=== PATIENT | male | born 1955 | race Caucasian/White ===

== ENCOUNTER → 2019-07-25 | Outpatient (CLI) | payer OTHER ==
[~2019-07-25] VITALS: Ht 170.2 cm; Wt 99.8 kg
[~2019-07-25] MED LIST: FLEXERIL PO; HYDROCODON-ACE1 EAC7 PO; LIPITOR40 MG; METFORMIN; METFORMIN HCL500 M3 PO; PRINIVIL10 MG PO; SULINDAC 150 M150 MG PO; VIAGRA25 MG PO; ZETIA10 MG PO; [UNRECOGNIZED DRUG - OTHER] PO
[2019-07-25 13:15] VITALS: BP 114/76
--- NOTE | 2019-07-25 13:30 | NUR ---
Pain Clinic Assessment: 1. History of Osteoarthritis: Not Applicable History of Rheumatoid Arthritis: Not Applicable 2. Height: 5 ft. 7 in. 170.2 cm. Weight: 220.0 lb. oz. 99.792 kg. Patient's BMI: 34.4 3. Vital Signs: BP: 114/76 Pulse: 91 Resp: 16 Temp: 02 Sat: 97 ECG Mon: 4. Pain Intensity: 9 5. Fall Risk: Dizziness: N Needs help standing or walking: N Fallen in the last 3 months: N Fall risk comments: 6. Patient on Blood Thinner: None 7. History of Hypertension: Y 8. Opioid Therapy greater than 6 weeks: N Opiate Contract Signed: 9. Risk Assessment Tool Provided: low-0 10. Functional Assessment Tool: 11. Recreational Drug Use: Never Drug Type: Tobacco Use: Never Smoker Tobacco Type: Amount or Packs/day: How Many Years: Alcohol Use: Yes Frequency: Special Occasions Quant:
--- NOTE | 2019-08-21 21:49 | HPC ---
[facility] [address] [address] PAIN MANAGEMENT CONSULTATION Name: SHANNANSHERWINJOSSE ONOFRE Room #: REG PRISCILLA JamesonJose Guadalupe#: [id number] Admission: 07/25/19 Attend Phys: Giuseppe Diaz MD Discharge: Date of : 57 Report #: [id number] THIS REPORT FOR: //name// CC: Giuseppe Osborn DATE OF SERVICE: 07/25/2019 CHIEF COMPLAINT: Pain that started in 2018 and goes down into the left leg. HISTORY: The patient is a 64-year-old gentleman who has been experiencing pain and discomfort starting in June 2019. He describes it as a stabbing discomfort. The pain radiates down to his left thigh and into his left knee. Finds that the pain can be aggravating. Has noticed some leg numbness and paresthesias. Denies any bowel or bladder discomfort. He has tried nonsteroidal anti-inflammatory medications. Muscle relaxants have been tried. He has also tried physical therapy. Continues to have pain, which is problematic. States that he works for [employer]. 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 It is uneven. He has made a step, which caused increased back pain. He has undergone physical therapy. Does have a pituitary tumor and is being seen by the computer applications engineer. Does note some heaviness in his left leg when he is lifting it. He had an MRI, which showed some narrowing and some spinal stenosis. ALLERGIES: No known drug allergies. CURRENT MEDICATIONS: Lipitor 1 tablet 80 mg, Flexeril 10 mg t.i.d., Zetia 10 mg, lisinopril 10 mg, metformin 500 mg total 2 tablets daily, sulindac 150 mg 2 tablets daily, Viagra 100 mg p.r.n., hydrocodone 5/325 p.r.n., and multivitamin. PAST MEDICAL HISTORY: 1. Pituitary adenoma, hypogonadotropic hypogonadism. 2. Type 2 diabetes without complications, without long-term use of insulin. 3. Lumbar back pain with radicular pain. 4. Degenerative disk disease of the lumbar spine. 5. Spinal stenosis of lumbar region with neurogenic claudication. PAST SURGICAL HISTORY: Tonsillectomy. SOCIAL HISTORY: He is a certified welder and roving inspector. He has not worked since 06/28/2017. Applied for disability. REVIEW OF SYSTEMS: Fatigue, weakness, headaches, wears glasses, ringing in the ears, mouth sores, depression, diabetes, excessive thirst and urination. LABORATORY DATA: MRI of the lumbar spine dated 06/29/[address] [address] PAIN MANAGEMENT CONSULTATION Name: SHERWIN CAMPBELL Room #: REG [facility]#: [id number] Admission: 07/25/19 Attend Phys: Giuseppe Diaz MD Discharge: Date of : 57 Report #: [id number] alignment. Vertebral heights are maintained. There is normal marrow signal. The conus position is at L1. There is degenerative disk disease and desiccation at L3-L4. There is posterior annular fissure noted at L3-L4. Broad-based disk bulge at L3-L4 along with facet hypertrophy and ligamentum flavum producing mild central stenosis and moderate right neural foraminal narrowing. Mild lumbar spondylosis. Small circumferential disk bulge, ligamentum flavum thickening and facet hypertrophy resulting in central canal stenosis and moderate right neural foraminal stenosis at L3-L4 and right neural foraminal stenosis at L4-L5. No evidence of ligamentous injury. Small bilateral renal cysts. PAIN CLINIC ASSESSMENT AND PQRS: 1. History of osteoarthritis. The patient is not being treated for osteoarthritis or rheumatoid arthritis. 2. Height 5 feet 7 inches, weight 220 pounds, BMI 34.4. 3. Vital signs: Blood pressure 114/76, pulse 91, respiratory rate 16, room air saturation 97%. 4. Pain intensity 9/10. 5. Fall history: The patient has not fallen in the last 3 months. 6. Blood thinner. The patient is not on a blood thinning medication. 7. Hypertension. The patient is being treated for hypertension. 8. Opioids greater than 6 weeks. The patient received medication from one source, his primary. 9. Risk assessment tool, low for opioid use. 10. Functional assessment tool, 51/70. 11. Recreational drug use: The patient denies. 12. Tobacco: The patient has never smoked. 13. Alcohol. The patient occasionally drinks alcoholic beverages. PHYSICAL EXAMINATION: GENERAL: The patient is a well-developed, well-nourished white male. Appears his stated age. He is alert and oriented x 3. His affect is appropriate. Speech is fluent. HEENT: Normocephalic, atraumatic. Extraocular eye muscles intact. Sclerae nonicteric. Mucous membranes are moist. NECK: Without adenopathy or JVD. HEART: Regular rate. ABDOMEN: Nontender. EXTREMITIES: Upper extremity muscles 5/5 for the major muscle groups in the upper extremity. Deep tendon reflexes are +1 at the biceps bilaterally. The patient has pain and discomfort in lower portion of his back with pain that is radiating down in the L5-S1 dermatomal distribution on the left with pain in the posterior portion of his leg with sensory changes, weakness and a positive straight leg raise. [address] [address] PAIN MANAGEMENT CONSULTATION Name: SHERWIN CAMPBELL Room #: REG [facility]#: [id number] Admission: 07/25/19 Attend Phys: Giuseppe Diaz MD Discharge: Date of : 57 Report #: [id number] IMPRESSION: 1. Lumbar radiculopathy with L5-S1 area with sensory changes. 2. Pituitary adenoma, hypogonadotropic hypogonadism. 3. Type 2 diabetes without complications, without long-term use of insulin. 4. Lumbar back pain with radicular pain. 5. Degenerative disk disease of the lumbar spine. 6. Spinal stenosis of lumbar region with neurogenic claudication. RECOMMENDATIONS: We discussed treatment options with the patient. They include infection, worsening of pain, no improvement in pain, spinal headache and the patient elects to proceed with the injection. The patient's hip anatomy was discussed. A model was used to indicate the area of probable pathology. Questions were sought and answered. The patient elects to proceed with an epidural injection. PROCEDURE NOTE: The patient was taken to the procedure area. He was then assisted in getting on examination table. His back was sterilely prepped with Betadine. A 0.25% bupivacaine was infiltrated at the L5-S1 area using a midline approach. A left paramedian approach using a 17-gauge Tuohy through the midline approach was undertaken. There was no CSF, heme, or paresthesia. This area had been anesthetized using 0.25% bupivacaine. The patient tolerated the procedure well. There were no complications. He remained in the pain clinic for an appropriate amount of time. The patient's pain was 7-8 at the time of discharge. He will follow up in the future as needed. Total of 9 seconds fluoroscopy time was used. We would like to thank you for letting us participate in his care. We hope he continues to improve. <ELECTRONICALLY SIGNED> By: Giuseppe Diaz MD 08/21/19 2149 [id number] Giuseppe Diaz MD /nt
== END | disposition home or self-care (01) ==
LOC: PAIN 06:58
DX: M54.16 Radiculopathy, lumbar region (principal); I10 Essential (primary) hypertension; D64.9 Anemia, unspecified; E11.9 Type 2 diabetes mellitus without complications; Z79.899 Other long term (current) drug therapy

== ENCOUNTER → 2019-08-24 | Outpatient (CLI) | payer OTHER ==
[~2019-08-24] VITALS: Ht 170.2 cm; Wt 105.5 kg
[~2019-08-24] MED LIST changes: +NEURONTIN300 MG PO; +TRAMADOL 50 MG50 MG PO
[2019-08-24 10:30] VITALS: BP 104/70
--- NOTE | 2019-08-24 10:45 | NUR ---
Pain Clinic Assessment: 1. History of Osteoarthritis: Not Applicable History of Rheumatoid Arthritis: Not Applicable 2. Height: 5 ft. 7 in. 170.2 cm. Weight: 232.6 lb. oz. 105.507 kg. Patient's BMI: 36.4 3. Vital Signs: BP: 104/70 Pulse: 63 Resp: 14 Temp: 02 Sat: 97 ECG Mon: 4. Pain Intensity: 7-8 today 5. Fall Risk: Dizziness: N Needs help standing or walking: N Fallen in the last 3 months: N Fall risk comments: 6. Patient on Blood Thinner: None 7. History of Hypertension: Y 8. Opioid Therapy greater than 6 weeks: N Opiate Contract Signed: 9. Risk Assessment Tool Provided: low-0 10. Functional Assessment Tool: 11. Recreational Drug Use: Never Drug Type: Tobacco Use: Never Smoker Tobacco Type: Amount or Packs/day: How Many Years: Alcohol Use: Yes Frequency: Quant:
--- NOTE | 2019-09-11 14:24 | HPC ---
[facility] [place] [address] PAIN MANAGEMENT CONSULTATION Name: SHANNANSHERWIN ONOFRE Room #: REG PRISCILLA JamesonJose Guadalupe#: [id number] Admission: 08/24/19 Attend Phys: Giuseppe Diaz MD Discharge: Date of : 57 Report #: [id number] THIS REPORT FOR: //name// CC: Giuseppe Osborn DATE OF SERVICE: 08/24/2019 CHIEF COMPLAINT: Pain down in the left leg continues. HISTORY: The patient is a 64-year-old gentleman who has been seen in the pain clinic because of lumbar radiculopathy. He returns today, continuing to have pain in the lower portion of his back, which radiates down the left buttocks. He also has some discomfort in the left testicular area. He did have a pituitary tumor removed. He has returned today for evaluation. He continues to have constant, burning, aching, throbbing, sharp, pounding pain. He rates his pain as a 7-8/10. He notes that activities such as exercise can exacerbate his discomfort. ALLERGIES: No known drug allergies. CURRENT MEDICATIONS: Lipitor 80 mg, Flexeril 10 mg t.i.d., Zetia 10 mg, lisinopril 10 mg, metformin 500 mg, total of 2 tablets daily, sulindac 150 mg 2 tablets daily, Viagra 100 mg p.r.n., hydrocodone 5/325 and multivitamins. PAIN CLINIC ASSESSMENT AND PQRS: 1. The patient is not being treated for osteoarthritis or rheumatoid arthritis. 2. Height 5 feet 7 inches, weight 232 pounds, BMI is 36.4. 3. Vital Signs: Blood pressure 120/78, pulse 92, respiratory rate 18, room air saturation 97%. 4. Pain intensity 7-8/10. 5. Fall history: The patient has not fallen in the last 3 months. 6. Blood thinner. The patient is not on a blood thinning medication. 7. Hypertension. The patient is being treated for hypertension. 8. Opioids greater than 6 weeks. The patient denies other than get medication from his primary. 9. Risk assessment tool, low for opioid use. 10. Functional assessment tool /. 11. Recreational drug use: The patient denies. 12. Tobacco: The patient denies. 13. Alcohol: Occasional. PHYSICAL EXAMINATION: GENERAL: The patient is a well-developed, well-nourished white male. Appears his stated age. He is alert and oriented x 3. His affect is appropriate. [place] [address] PAIN MANAGEMENT CONSULTATION Name: SHERWIN CAMPBELL Room #: REG [facility]#: [id number] Admission: 08/24/19 Attend Phys: Giuseppe Diaz MD Discharge: Date of : 57 Report #: [id number] HEENT: Normocephalic, atraumatic. Extraocular eye muscles intact. Sclerae nonicteric. Mucous membranes are moist. NECK: Without adenopathy or JVD. HEART: Regular rate. ABDOMEN: Protuberant, nontender. EXTREMITIES: Upper extremity muscle strength judged to be 5/5 for the major muscle groups in the upper extremity. The patient has some pain and discomfort in the lower portion of his back with pain that radiates down the L5-S1 dermatomal distribution on the left. He has some sensory changes with weakness. Positive straight leg raise. IMPRESSION: 1. Lumbar radiculopathy with L5-S1 dermatomal distribution with sensory changes. 2. Pituitary adenoma. 3. Hypogonadotropic hypogonadism. 4. Diabetes without complications without long-term use of insulin. 5. Lumbar back pain with radiculopathy. 6. Degenerative joint disease of lumbar spine. 7. Spinal stenosis of lumbar spine with neurogenic claudication. RECOMMENDATIONS: We discussed treatment options with the patient. At this juncture, he has recently undergone surgery. Things are going reasonably well. He has continued to do well. He is scheduled in the very near future to follow up with his surgeons. He has not followed up with them since the surgery. We explained to him that it would be reasonable to get the okay from his surgeons that things have healed up well and he is not having problems prior to another injection. He will return to the Pain Clinic, at which time we would then proceed with another epidural steroid injection to help quell and decrease the pain and discomfort that he is having. We would like to thank you for letting us participate in his care. We hope he continues to improve. <ELECTRONICALLY SIGNED> By: Giuseppe Diaz MD 09/11/19 1424 [id number] [id number] Giuseppe Diaz MD /shea
== END ==
LOC: PAIN 07:32
DX: M47.26 Other spondylosis with radiculopathy, lumbar region (principal); E23.0 Hypopituitarism; E11.9 Type 2 diabetes mellitus without complications; M54.5 Low back pain; M48.061 Spinal stenosis, lumbar region without neurogenic claudication

== ENCOUNTER → 2019-08-31 | Outpatient (CLI) | payer OTHER ==
[~2019-08-31] VITALS: Ht 170.2 cm; Wt 105.1 kg
[2019-08-31 10:01] VITALS: BP 117/67
--- NOTE | 2019-08-31 10:07 | NUR ---
Pain Clinic Assessment: 1. History of Osteoarthritis: Not Applicable History of Rheumatoid Arthritis: Not Applicable 2. Height: 5 ft. 7 in. 170.2 cm. Weight: 231.8 lb. oz. 105.144 kg. Patient's BMI: 36.3 3. Vital Signs: BP: 117/67 Pulse: 66 Resp: 14 Temp: 02 Sat: 98 ECG Mon: 4. Pain Intensity: 7 TODAY 5. Fall Risk: Dizziness: N Needs help standing or walking: N Fallen in the last 3 months: N Fall risk comments: 6. Patient on Blood Thinner: None 7. History of Hypertension: Y 8. Opioid Therapy greater than 6 weeks: N Opiate Contract Signed: 9. Risk Assessment Tool Provided: low-0 10. Functional Assessment Tool: 11. Recreational Drug Use: Never Drug Type: Tobacco Use: Never Smoker Tobacco Type: Amount or Packs/day: How Many Years: Alcohol Use: Yes Frequency: Quant:
--- NOTE | 2019-09-11 14:24 | HPC ---
[facility] [place] [address] [place] [address] PAIN MANAGEMENT CONSULTATION Name: SHANNANSHERWIN KINGSTON Room #: REG PRISCILLA Gisell.#: [id number] Admission: 08/31/19 Attend Phys: Giuseppe Diaz MD Discharge: Date of : 57 Report #: [id number] THIS REPORT FOR: //name// CC: Giuseppe Osborn DATE OF SERVICE: 08/31/2019 HISTORY: The patient is a 64-year-old gentleman who has been seen in the pain clinic because of pain and discomfort in his low back area. He has undergone epidural steroid injections and found them helpful. He is now having pain and discomfort in the mid portion of his back. He would like to proceed with another epidural steroid injection. He has also tried physical therapy. As you may recall, he works for the [employer]. He has had a pituitary tumor removed. He has been seen by his surgeon and the ENT doctor. He feels that at this juncture it is reasonable for him to proceed with an epidural steroid injection. ALLERGIES: No known drug allergies. CURRENT MEDICATIONS: Lipitor 80 mg daily, Flexeril 10 mg t.i.d., Zetia 10 mg, lisinopril 10 mg, metformin 500 mg 2 tablets daily, sulindac 150 mg 2 tablets, Viagra 100 mg p.r.n., hydrocodone 5/325 and multivitamins. PAIN CLINIC ASSESSMENT AND PQRS: 1. History of osteoarthritis. The patient is not being treated for osteoarthritis. He is not being treated for rheumatoid arthritis. 2. Height 5 feet 7 inches, weight 231 pounds, BMI is 36.3. 3. Vital Signs: Blood pressure was 117/67, pulse 66, respiratory rate 14, room air saturation 98%. 4. Pain intensity 03/21. 5. Fall history: The patient has not fallen in the last 3 months. 6. Blood thinner. The patient is not on a blood thinning medication. 7. Hypertension. The patient is being treated for hypertension. 8. Opioids greater than 6 weeks. The patient receives medications from his primary physician. 9. Risk assessment tool, low for opioid use. 10. Functional assessment tool 51/70. 11. Recreational drugs: The patient denies. 12. Tobacco: The patient has never smoked. 13. Alcohol: The patient denies frequent use of alcoholic beverages. PHYSICAL EXAMINATION: GENERAL: The patient is a well-developed, well-nourished, somewhat obese white male. He appears his stated age. He is alert and oriented x 3. His affect is appropriate. Speech is fluent. HEENT: Normocephalic, atraumatic. Extraocular eye muscles intact. There are [address] [address] PAIN MANAGEMENT CONSULTATION Name: SHERWIN CAMPBELL Room #: REG PRISCILLA Figueroa#: [id number] Admission: 08/31/19 Attend Phys: Giuseppe Diaz MD Discharge: Date of : 57 Report #: [id number] no signs of infection in the patient's frontal sinus area. He denies any complaints in the maxillary areas. NECK: Without adenopathy or JVD. HEART: Regular rate. ABDOMEN: Nontender, protuberant. EXTREMITIES: Upper extremity muscle strength judged to be 5/5 for the major muscle groups in the upper extremity. Lower extremity muscle strength, the patient does have some pain and discomfort in the lower portion of his back. Pain at this juncture is radiating down into the back area groin area on the left. He noticed some improvement in the L5-S1 area, which had been injected in the past. IMPRESSION: 1. Lumbar radiculopathy with pain in the left groin area. Pain has improved in the L5-S1 area. 2. Pituitary adenoma/hypogonadotropic hypogonadism. 3. Type 2 diabetes without complications, without long-term use of insulin. 4. Lumbar back pain with radicular pain in the groin area. 5. Degenerative disk disease of the lumbar spine. 6. Spinal stenosis of lumbar spine with neurogenic claudication. RECOMMENDATIONS: We discussed treatment options with the patient. At this juncture, he feels that the pain is more problematic in the groin area. We explained to him that injections in the groin area could be secondary to hip pain, or hip pathology or trochanteric bursitis, but the patient feels that this pain is more involving the groin and anterior thigh area. We will proceed with an epidural steroid injection in the L1-L2 area. Risks and benefits of the injections were discussed. They could include but are not limited to infection, worsening pain, no improvement in pain, nerve damage, spinal headache and the patient elects to proceed. PROCEDURE NOTE: The patient was taken to the procedure area. He was then assisted in getting on examination table. His back was sterilely prepped with a Betadine solution. A 0.25% bupivacaine was infiltrated at the L1 - T12 interspace. This area had been infiltrated with 0.25% bupivacaine. A total of 80 mg Depo-Medrol, 40 mg triamcinolone and 2 mL of 0.25% bupivacaine was injected. The patient tolerated the procedure well. There were no complications. He remained in the pain clinic for an appropriate amount of time. He will follow up in the future as needed. He will monitor his blood sugars. [facility] [address] [place] [address] PAIN MANAGEMENT CONSULTATION Name: SHERWIN CAMPBELL Room #: REG PRISCILLA Jameson.#: [id number] Admission: 08/31/19 Attend Phys: Giuseppe Diaz MD Discharge: Date of : 57 Report #: [id number] We would like to thank you for letting us participate in his care. We hope he continues to improve. <ELECTRONICALLY SIGNED> By: Giuseppe Diaz MD 09/11/19 1424 0221 1313 Giuseppe Diaz MD /nt
== END | disposition home or self-care (01) ==
LOC: PAIN 06:41
DX: M51.16 Intervertebral disc disorders with radiculopathy, lumbar region (principal); M48.062 Spinal stenosis, lumbar region with neurogenic claudication; G89.29 Other chronic pain; E11.9 Type 2 diabetes mellitus without complications; D35.2 Benign neoplasm of pituitary gland; I10 Essential (primary) hypertension; Z98.890 Other specified postprocedural states; Z79.899 Other long term (current) drug therapy; Z79.891 Long term (current) use of opiate analgesic

== ENCOUNTER → 2019-10-05 | Outpatient (CLI) | payer OTHER ==
[~2019-10-05] VITALS: Ht 170.2 cm; Wt 110.9 kg
[~2019-10-05] MED LIST changes: +LEVO-T25 MCG PO; +PREDNISONE 5 MG5 MG PO
[2019-10-05 10:48] VITALS: BP 110/72
--- NOTE | 2019-10-05 11:13 | NUR ---
Pain Clinic Assessment: 1. History of Osteoarthritis: BACK History of Rheumatoid Arthritis: Not Applicable 2. Height: 5 ft. 7 in. 170.2 cm. Weight: 244.4 lb. oz. 110.859 kg. Patient's BMI: 38.3 3. Vital Signs: BP: 110/72 Pulse: 80 Resp: 16 Temp: 02 Sat: 97 ECG Mon: 4. Pain Intensity: 6 5. Fall Risk: Dizziness: N Needs help standing or walking: N Fallen in the last 3 months: N Fall risk comments: 6. Patient on Blood Thinner: None 7. History of Hypertension: Y 8. Opioid Therapy greater than 6 weeks: N Opiate Contract Signed: 9. Risk Assessment Tool Provided: low-0 10. Functional Assessment Tool: 11. Recreational Drug Use: Never Drug Type: Tobacco Use: Never Smoker Tobacco Type: Amount or Packs/day: How Many Years: Alcohol Use: Yes Frequency: Monthly Quant: 1
--- NOTE | 2019-10-10 08:34 | HPC ---
[facility] [place] [address] PAIN MANAGEMENT CONSULTATION Name: SHANNAN,SHERWINJOSSE ONOFRE Room #: REG PRISCILLA Henry#: [id number] Admission: 10/05/19 Attend Phys: Giuseppe Diaz MD Discharge: Date of : 57 Report #: [id number] THIS REPORT FOR: //name// CC: Giuseppe Osborn DATE OF SERVICE: 10/05/2019 CHIEF COMPLAINT: Pain in the low back area. HISTORY: The patient is a 64-year-old gentleman who has been seen in the Pain Clinic. As you may recall, he has had some pain and discomfort in lower portion of his back. He initially had pain that was problematic and radiating down into the lower portion of his back. He underwent an epidural steroid injection because of the pain in the L5-S1 area. He noted an improvement after the first injection. He had a second component of pain, which was located in the left leg with some pain radiating down into the groin area. A second epidural steroid injection was performed and the patient noted improvement in that low back area as well as in the groin area. That pain has improved. He now returns with a third pain. This was in the low back area near the gluteus key and primarily on the left side. If he pushes on this area, he notes exacerbation of the pain and discomfort. He has returned today for another evaluation and treatment. ALLERGIES: No known drug allergies. CURRENT MEDICATIONS: Lipitor 80 mg, Flexeril 10 mg 1 p.o. t.i.d., Zetia 10 mg, lisinopril 10 mg, metformin 500 mg 2 tablets daily, sulindac 150 mg 2 tablets, Viagra 100 mg p.r.n., hydrocodone 5/325, and multivitamins. PAIN CLINIC ASSESSMENT/PQRS: 1. The patient has some pain and discomfort in the lower back area. He is not being treated for rheumatoid arthritis. 2. Height 5 feet 7 inches, weight 244 pounds, BMI is 38.3. 3. Vital signs: Blood pressure 110/72, heart rate 80, respiratory rate 16, room air saturation 97%. 4. Pain intensity, 02/19. 5. Fall history: The patient has not fallen since we saw him last. 6. Blood thinner. The patient is not on a blood thinning medication. 7. Hypertension. The patient is being treated for hypertension. 8. Opioids greater than 6 weeks. The patient received medication from one source. 9. Risk assessment tool, low for opioid use. 10. Functional assessment tool, 51/70. 11. Recreational drug use: The patient denies. 12. Tobacco: The patient never smoked. [facility] [address] [place] [address] PAIN MANAGEMENT CONSULTATION Name: SHERWIN CAMPBELL Room #: REG [facility] Henry#: [id number] Admission: 10/05/19 Attend Phys: Giuseppe Diaz MD Discharge: Date of : 57 Report #: [id number] 13. Alcohol. The patient denies other than rare use of alcoholic beverages. PHYSICAL EXAMINATION: GENERAL: The patient is a well-developed, well-nourished white male. Appears his stated age. He is alert and oriented x 3. His affect is appropriate. Speech is fluent. HEENT: Normocephalic, atraumatic. Extraocular eye muscles intact. Sclerae nonicteric. Mucous membranes are moist. NECK: Without adenopathy or JVD. HEART: Regular rate. ABDOMEN: Nontender, protuberant. EXTREMITIES: Upper extremity muscle strength judged to be 5/5 for the major muscle groups in the upper extremity. Lower extremity muscle strength generally 5/5 for the major muscle groups in the lower extremity. The patient has pain and discomfort in the left posterior superior iliac spine area with palpation. The patient is experiencing pain and discomfort with lumbar extension, left and right lateral bending. It is primarily in the left buttocks and low back area. IMPRESSION: 1. Myofascial pain, left buttocks area. 2. History of lumbar radiculopathy in the left groin improved after an epidural steroid injection. 3. Pituitary adenoma/hypogonadotropic hypogonadism. 4. Type 2 diabetes without complications, without use of insulin. 5. Lumbar radicular pain in the groin area, improved after the last injection. 6. Degenerative joint disease of lumbar spine. 7. Spinal stenosis of lumbar spine with neurogenic claudication. RECOMMENDATIONS: We discussed treatment options with the patient. He underwent an injection in the epidural space for the pain in the left groin area that is improved. He had pain, which is radiating in the L5-S1 dermatomal distribution. After the injection for this, pain improved. The patient is now with left foot pain and the left low back area. Palpation in the left groin and in the left posterior superior iliac spine area does cause the patient to complain and verbalized that this indeed is the nidus of his pain. We discussed treatment options with the patient. We will proceed with a trigger point injection. Risks and benefits of the procedure, which could include infection, no pain relief, worsening of pain, nerve damage, bleeding were discussed and the patient elects to proceed. PROCEDURE NOTE: The patient was taken to the procedure area. He was then assisted in getting on examination table. The patient sat perpendicular to the table. His back was sterilely prepped with a chlorhexidine solution and allowed to dry. Palpation in the area of the posterior superior iliac spine near the gluteus key and the latissimus dorsi was palpated. The patient states that this trigger point did reproduce his pain. A 25-gauge needle was then advanced [address] [address] PAIN MANAGEMENT CONSULTATION Name: SHERWIN CAMPBELL Room #: REG PRISCILLA Henry#: [id number] Admission: 10/05/19 Attend Phys: Giuseppe Diaz MD Discharge: Date of : 57 Report #: [id number] into the area of the discomfort. Aspiration was negative. The patient did not note any paresthesia. A total of 9 mL of 0.5% bupivacaine and 80 mg Depo-Medrol were injected into this area. The patient tolerated the procedure well. He remained in the Pain Clinic for an appropriate amount of time. He will follow up in the future as needed. Possibility of another epidural steroid injection in the future is an option. We would like to thank you for letting us participate in his care. We hope he continues to improve. <ELECTRONICALLY SIGNED> By: Giuseppe Diaz MD 10/10/19 0834 [id number] Giuseppe Diaz MD /nt
== END | disposition home or self-care (01) ==
LOC: PAIN 06:40
DX: M79.18 Myalgia, other site (principal); M51.16 Intervertebral disc disorders with radiculopathy, lumbar region; I10 Essential (primary) hypertension; E11.9 Type 2 diabetes mellitus without complications; M48.062 Spinal stenosis, lumbar region with neurogenic claudication; Z98.890 Other specified postprocedural states; Z79.899 Other long term (current) drug therapy; Z79.891 Long term (current) use of opiate analgesic

== ENCOUNTER → 2020-05-30 | Outpatient (CLI) | payer OTHER ==
[~2020-05-30] VITALS: Ht 170.2 cm; Wt 121.4 kg
[2020-05-30 12:20] VITALS: BP 122/71
--- NOTE | 2020-05-30 12:24 | NUR ---
Pain Clinic Assessment: 1. History of Osteoarthritis: BACK History of Rheumatoid Arthritis: Not Applicable 2. Height: 5 ft. 7 in. 170.2 cm. Weight: 267.6 lb. oz. 121.383 kg. Patient's BMI: 41.9 3. Vital Signs: BP: 122/71 Pulse: 70 Resp: 18 Temp: 02 Sat: 97 ECG Mon: 4. Pain Intensity: 7 5. Fall Risk: Dizziness: N Needs help standing or walking: N Fallen in the last 3 months: N Fall risk comments: 6. Patient on Blood Thinner: None 7. History of Hypertension: Y 8. Opioid Therapy greater than 6 weeks: N Opiate Contract Signed: 9. Risk Assessment Tool Provided: low-0 10. Functional Assessment Tool: 11. Recreational Drug Use: Never Drug Type: Tobacco Use: Never Smoker Tobacco Type: Amount or Packs/day: How Many Years: Alcohol Use: Yes Frequency: Quant:
--- NOTE | 2020-06-10 13:35 | HPC ---
[facility] [place] [address] PAIN MANAGEMENT CONSULTATION Name: SHERWIN CAMPBELL [facility] [id number] Admission: 05/30/20 Attend Phys: Giuseppe Diaz MD Discharge: Date of : 57 Report #: [id number] THIS REPORT FOR: cc: Torin Osborn,Giuseppe Garland MD ~ CC: Giuseppe Osborn DATE OF SERVICE: 05/30/2020 CHIEF COMPLAINT: Low back pain that goes into the left buttocks and some left groin pain. HISTORY: The patient is a 65-year-old gentleman who has been referred to the Pain Clinic for evaluation of back and some leg pain. The patient has noticed pain in the low back and left buttocks area. He also notes that the pain can involve the groin area. He noticed onset of this discomfort in 06/2019. He has undergone an epidural steroid injection in the low back area. He describes pain as burning, throbbing sore and aching. Pain can be exacerbated by sitting for too longer period of time. Pain helped by exercise, medications, rest and heat. ALLERGIES: No known drug allergies. CURRENT MEDICATIONS: Lipitor 80 mg, Flexeril 10 mg 1 p.o. t.i.d., Zetia 10 mg, lisinopril 10 mg, metformin 500 mg 2 tablets daily, sulindac 150 mg b.i.d., Viagra 100 mg p.r.n., hydrocodone 5/325, and multivitamins. PAIN CLINIC ASSESSMENT AND PQRS: 1. The patient has a pain and discomfort in the low back area. He is not being treated for rheumatoid arthritis. 2. Height 5 feet 7 inches, weight 267 pounds, BMI is 41. 3. Vital signs: Blood pressure 121/71, pulse 70, respiratory rate 18, and room air saturation 97%. 4. Pain intensity 03/21. 5. Fall history: The patient has not fallen. 6. Blood thinner. The patient is not on a blood thinning medication. 7. Hypertension. The patient is being treated for hypertension. 8. Opioids greater than 6 weeks. The patient receives medications from his primary. 9. Risk assessment tool, low for opioid. 10. Functional assessment tool . 11. Recreational drug use. The patient denies. 12. Alcohol: The patient occasionally drinks alcoholic beverages. [address] [address] PAIN MANAGEMENT CONSULTATION Name: SHERWIN CAMPBELL [id number] Admission: 05/30/20 Attend Phys: Giuseppe Diaz MD Discharge: Date of : 57 Report #: [id number] PHYSICAL EXAMINATION: GENERAL: The patient is a well-developed, well-nourished white male. Appears his stated age. He is alert and oriented x 3. His affect is appropriate. Speech is fluent. HEENT: Normocephalic, atraumatic. Extraocular eye muscles intact. The patient is wearing a facial covering. NECK: Without adenopathy or JVD. HEART: Regular rate. ABDOMEN: Nontender and protuberant. MUSCULOSKELETAL: Upper extremity muscle strength judged to be 5/5 for the major muscle groups in the upper extremity. Lower extremity muscle strength judged to be 5/5 for the major muscle groups in the lower extremity. The patient has pain and discomfort in the left posterior superior iliac spine area. Palpation on this does cause the patient to withdrawal and complains that indeed this is one of the areas that is most problematic. Pressure in this area does cause the patient to move away. IMPRESSION: 1. Myofascial pain, left posterior superior iliac spine area near the gluteus key. 2. History of left groin pain. 3. History of pituitary adenoma ? hypogonadotropic. 4. Hypogonadism. 5. Type 2 diabetes without complications, without insulin use. 6. Lumbar radicular pain history with pain in the groin. 7. Degenerative joint disease of the lumbar spine. 8. Spinal stenosis of the lumbar spine with neurogenic claudication. RECOMMENDATIONS: We discussed treatment options with the patient. At this juncture, he continues to have pain, which is most problematic in the low back area. This impacts his ability to engage in activities of daily living. He notes that if he pushes in this area, this does reproduce a significant component of his pain. We will proceed with an injection to the affected area. Risks and benefits of trigger point injections were discussed. The patient rates his pain today as quite severe and is a 7/10. Palpation in the low back area reproduces his discomfort. We will inject the area with steroid. PROCEDURE NOTE: The patient was taken to the procedure area. He was then set perpendicular on the bed. A chair was placed under his feet for stability. The patient's back was sterilely cleansed with a chlorhexidine solution and allowed it to dry. Trigger point was noted in the left low back area. A 25-gauge needle was then used to gain access to the left trigger point area near the left buttocks and gluteus key and latissimus dorsi. A 25-gauge needle elicited appropriate response. A total of 9 mL of 0.5% bupivacaine and 80 mg Depo-Medrol was injected. The patient tolerated the procedure well. He will follow up in [facility] [address] [place] [address] PAIN MANAGEMENT CONSULTATION Name: SHERWIN CAMPBELL Room #: REG PRISCILLA Figueroa#: [id number] Admission: 05/30/20 Attend Phys: Giuseppe Diaz MD Discharge: Date of : 57 Report #: [id number] the future as needed. We would like to thank you for letting us participate in his care. We hope he continues to improve. <ELECTRONICALLY SIGNED> By: Giuseppe Diaz MD 06/10/20 1335 [id number] Giuseppe Diaz MD /nt
== END | disposition home or self-care (01) ==
LOC: PAIN 05-23 10:05
PROVIDERS: ATTEND Anesthesiology Pain Medicine
DX: M79.18 Myalgia, other site (principal); I10 Essential (primary) hypertension; E11.9 Type 2 diabetes mellitus without complications; E29.1 Testicular hypofunction; M48.062 Spinal stenosis, lumbar region with neurogenic claudication; M51.36 Other intervertebral disc degeneration, lumbar region; Z79.891 Long term (current) use of opiate analgesic; Z79.899 Other long term (current) drug therapy; Z98.890 Other specified postprocedural states

== ENCOUNTER 2020-11-05 08:11 | Emergency (ER) | payer OTHER ==
[~2020-11-05] VITALS: Ht 172.7 cm; Wt 121.1 kg
[2020-11-05 09:07] LABS: ABSOLUTE NEUTROPHILS 4.7 thou/uL (1.4-8.2); BASOPHILS 0.9 % (0.0-2.0); EOSINOPHILS 2.2 % (0.0-3.0); HEMATOCRIT 39.8 % (42.0-52.0); LYMPHOCYTES 33.7 % (24.0-44.0); MCH 29.1 pg (26.0-34.0); MCHC 32.6 g/dL (28.0-37.0); MCV 89.4 fL (80.0-100.0); MONOCYTES 9.3 % (1.0-8.0); PLATELET COUNT 317 thou/uL (150-400); POLYS 53.9 % (36.0-66.0); RBC 4.45 mil/uL (4.50-6.00); RDW 14.1 % (10.5-14.5); WBC 8.7 thou/uL (4.0-11.0)
[2020-11-05 09:19] LABS: APTT 25.1 Seconds (24.5-32.8); PROTIME 10.4 Seconds (9.3-11.4)
[2020-11-05 09:31] LABS: ANION GAP 11 mmol/L (7-16); BUN 14 mg/dL (7-18); CALCIUM 9.1 mg/dL (8.5-10.1); CHLORIDE 103 mmol/L (98-107); CO2 24 mmol/L (21-32); GLUCOSE 129 mg/dL (74-106); SODIUM 138 mmol/L (136-145)
[2020-11-05 09:36] LABS: ALBUMIN 3.8 g/dL (3.4-5.0); AMYLASE 67 U/L (25-115); DIRECT BILIRUBIN < 0.1 mg/dL (<0.1-0.2); LIPASE 102 U/L (73-393); MAGNESIUM 1.8 mg/dL (1.8-2.4); SGOT 22 U/L (15-37); SGPT 41 U/L (16-63); TOTAL BILIRUBIN 0.5 mg/dL (0.2-1.0); TOTAL PROTEIN 7.1 g/dL (6.4-8.2); TROPONIN-I <0.06 ng/mL (<0.06)
--- NOTE | 2020-11-05 09:36 | EKG ---
[address] [place] [address] ELECTROCARDIOGRAM REPORT Name: SHERWIN CAMPBELL Room #: [facility] M.R.#: [id number] Admission: Attend Phys: Discharge: Date of : 57 Report #: [id number] [facility] ED Test Date: 2020-11-05 Test Time: 08:46:42 Pat Name: SHERWIN CAMPBELL Department: Room: Gender: M Final Assembler: QUINTEN : 1955 Requested By: Kemal Fuentes Order Number: [id number] MD: Juan Landis Measurements Intervals [place] Rate: 90 P: 63 [place]: 125 QRS: 9 QRSD: 87 T: 39 QT: 345 QTc: 422 Interpretive Statements Sinus rhythm Abnormal R-wave progression, early transition Compared to ECG 10/25/1997 18:12:00 No significant changes Electronically Signed On 11-05-2020 9:36:06 [employer] by Juan Landis [email or web address] <ELECTRONICALLY SIGNED> By: Juan Landis MD, [facility] 11/05/20 0936 [id number] Juan Landis MD, FACC /EPI
[2020-11-05] MEDS ORDERED: TESSALON PERLE100 M1 PO (10:48)
[2020-11-05 10:55] LABS: URINE BILIRUBIN NEGATIVE (Negative); URINE BLOOD NEGATIVE (Negative); URINE CLARITY CLEAR; URINE COLOR YELLOW; URINE GLUCOSE-RANDOM* NEGATIVE (Negative); URINE KETONES NEGATIVE (Negative); URINE LEUKOCYTES-REFLEX NEGATIVE (Negative); URINE NITRITE-REFLEX NEGATIVE (Negative); URINE PROTEIN (DIPSTICK) NEGATIVE (Negative); URINE SPECIFIC GRAVITY 1.025 (1.005-1.035); URINE UROBILINOGEN 0.2 E.U./dl (0.2-1.0)
[2020-11-05 11:17] VITALS: BP 122/66
== END 2020-11-05 11:20 | disposition home or self-care (01) ==
LOC: ER 08:11
PROVIDERS: Emergency Medicine
DX: R55 Syncope and collapse (principal); R04.2 Hemoptysis; R06.00 Dyspnea, unspecified; D35.2 Benign neoplasm of pituitary gland; E11.9 Type 2 diabetes mellitus without complications; I10 Essential (primary) hypertension; Z79.899 Other long term (current) drug therapy

== ENCOUNTER → 2020-11-26 | Outpatient (CLI) | payer OTHER ==
[~2020-11-26] MED LIST changes: +TESSALON PERLE100 M1 PO
== END ==
LOC: SJCVCIMAG 07:49
PROVIDERS: ATTEND Internal Medicine
DX: R00.0 Tachycardia, unspecified (principal); R06.00 Dyspnea, unspecified; R00.1 Bradycardia, unspecified; I10 Essential (primary) hypertension; E78.5 Hyperlipidemia, unspecified